=== PATIENT | female | born 1975 | race Caucasian/White ===

== ENCOUNTER → 2019-12-20 | Outpatient (CLI) | payer OTHER ==
--- NOTE | 2019-12-20 14:14 | KCIC ---
Three-view study left foot Clinical indications: Lateral left foot pain and contusion. Rolled left foot 2 days ago. FINDINGS: No acute fracture or dislocation or lytic process is seen. Moderate-sized plantar spur of the calcaneus is seen. No periosteal reaction is seen. Calcified phleboliths of the left ankle are seen. IMPRESSION: No acute fracture. Electronically signed by: Stanislav Gracia MD (12/20/2019 2:11 PM) [facility] [place]
== END | disposition home or self-care (01) ==
LOC: KCIC 12:29
PROVIDERS: ATTEND Nurse Practitioner Family
DX: S90.32XA Contusion of left foot, initial encounter (principal); M77.32 Calcaneal spur, left foot; I87.8 Other specified disorders of veins; X58.XXXA Exposure to other specified factors, initial encounter; Y93.89 Activity, other specified; Y92.89 Other specified places as the place of occurrence of the external cause; Y99.8 Other external cause status
CPT/HCPCS: 73630

== ENCOUNTER → 2020-08-09 | Outpatient (CLI) | payer OTHER ==
[2020-08-09 08:21] LABS: HEMATOCRIT 46.6 % (36.0-47.0); RED CELL DISTRIBUTION WIDTH 12.2 % (11.5-14.5); WHITE BLOOD COUNT 11.2 x10^3/uL (4.0-11.0)
[2020-08-09 08:47] LABS: ALBUMIN 3.6 g/dL (3.4-5.0); CREATININE 0.7 mg/dL (0.6-1.0); GFR 90.1; POTASSIUM 4.1 mmol/L (3.5-5.1); TOTAL BILIRUBIN 0.4 mg/dL (0.2-1.0); TOTAL PROTEIN 7.2 g/dL (6.4-8.2)
[2020-08-09 08:50] LABS: CHOLESTEROL/HDL RATIO 6.9; FREE T4 1.07 ng/dL (0.76-1.46); THYROID STIM HORMONE (TSH) 1.439 uIU/mL (0.358-3.74)
[2020-08-10 01:08] LABS: HEMOGLOBIN A1C 8.3 % (4.8-5.6)
== END ==
LOC: LAB 07:48
PROVIDERS: ATTEND Nurse Practitioner Family
DX: R53.83 Other fatigue (principal)
CPT/HCPCS: 36415; 80053; 80061; 82306; 82607; 82746; 83036; 83540; 83550; 84439; 84443; 85027

== ENCOUNTER → 2020-09-08 | Day surgery (SDC) | payer OTHER ==
[~2020-09-08] MED LIST: BUPR150T15 PO; LEVO5TAB29 PO; LIDOCAINE 1%/EPI 1:100,000 20 ML VIAL. INJ ONE; METF100010 PO; NAPR220T70 PO
--- NOTE | 2020-09-08 13:13 | PDOC4 ---
Operative Note Operative Note Date: 1210 at 1300 Preoperative diagnosis: Left facial sebaceous cyst Postoperative diagnosis: Same Procedure: Excision of sebaceous cyst Surgeon: Mejia Specimen: Facial mass Dictation: Patient is a 45-year-old female with an enlarging mass on her left face along the jawline patient only is tender procedure of excision was explained to the patient detail was benefits were also discussed occluding bleeding infection alternatives this procedure also discussed with patient who seemed to understand and gave both verbal and written consent to have the procedure performed. Patient was taken to the minors room placed in the supine positioning the area on the mass on her face was prepped and draped usual sterile fashion using ChloraPrep. An area around the mass was injected with 1% lidocaine with epinephrine once this was an anesthetized an elliptical incision over the mass was made with a 15 blade scalpel the skin was excised underneath the skin was a sebaceous cyst this was removed sharply and sent for pathology the wound was then closed in a single layer 4-0 subcuticular Monocryl Mastisol Steri-Strips and island dressings were applied. Patient tolerated procedure well was discharged home in stable condition all sponge instrument needle counts listed as correct estimated blood loss less than 5 mL MARY REGAN MD Sep 08, 2020 13:13
--- NOTE | 2020-09-08 13:14 | DISCH ---
DISCHARGE INSTRUCTIONS Condition on Discharge Condition on Discharge: Stable Activity After Discharge Activity Instructions for Disc: No restrictions Diet after Discharge Diet after Discharge: Regular Wound Incision Care Other wound/incision instructi: May shower in 24 hours Contacting the after DC Call your doctor for: If your condition worsens Follow-Up Follow up with: Dr. Regan in 2 weeks MARY REGAN MD Sep 08, 2020 13:14
--- NOTE | 2020-09-12 09:19 | PATHOLOGY ---
[facility] Accession Number: [id number] . 01 Material submitted: . jaw - LEFT JAW CYST. Modifiers: left . 02 Diagnosis: Skin, left jaw lesion excision: - Epidermal inclusion cyst. - Intradermal melanocytic nevus of skin overlying cyst. (JP:assistant case manager; 09/11/2020) R 09/11/2020 1650 Local . 02 Comment: There is no evidence of malignancy. (JPM:assistant case manager; 09/11/2020) . 02 Electronically signed: . Alex Whittaker MD, Pathologist NPI- [id number] . 01 Gross description: . Received in formalin labeled "Lori Bowers, left jaw cyst" is a previously opened go-white cystic structure measuring 0.8 x 0.7 x 0.6 cm, which contains go-white friable material. Also present in the container is a 1.2 x 0.8 x 0.3 cm ellipse of go-brown skin. The specimen is sectioned and submitted entirely in cassette A1. [place] [place] [facility] 09/09/2020 1022 Local . 02 Pathologist provided ICD-10: L72.0 . 02 CPT . 521308 Specimen Comment: A courtesy copy of this report has been sent to [phone], [phone] Specimen Comment: [id number] Specimen Comment: Report sent to / DR BARTHOLOMEW Performed at: 01 [facility] [address] [facility] [address], [place] [id number] MD Juan Manuel Maki MD Phone: [phone] Performed at: 02 [facility] [address] [place], [place] [id number] MD Alex Whittaker MD Phone: [phone]
== END | disposition home or self-care (01) ==
LOC: SURG 09:56
PROVIDERS: ATTEND Surgery
DX: L72.3 Sebaceous cyst (principal); L72.0 Epidermal cyst; Z20.828 Contact with and (suspected) exposure to other viral communicable diseases; E11.9 Type 2 diabetes mellitus without complications; F41.9 Anxiety disorder, unspecified; F17.210 Nicotine dependence, cigarettes, uncomplicated; I87.8 Other specified disorders of veins; Z79.84 Long term (current) use of oral hypoglycemic drugs; Z91.040 Latex allergy status; Z88.8 Allergy status to other drugs, medicaments and biological substances; Z90.49 Acquired absence of other specified parts of digestive tract; Z98.890 Other specified postprocedural states; Z79.899 Other long term (current) drug therapy
CPT/HCPCS: 11441; 87426; 88304; C9803; J3490; U0003

== ENCOUNTER 2021-02-25 14:31 | Emergency (ER) | payer OTHER ==
[~2021-02-25] VITALS: Ht 170.2 cm; Wt 85.0 kg
[~2021-02-25 14:31] MED LIST changes: -LIDOCAINE 1%/EPI 1:100,000 20 ML VIAL. INJ ONE
[2021-02-25 16:35] VITALS: BP 160/96
[2021-02-25] MEDS ORDERED: MORPHINE SULFATE 4 MG/ML VIAL. IV ONE (17:15)
[2021-02-25] MEDS ORDERED: IV NORMAL SALINE 1000ML BAG 1,000 ML IV ONE (17:15)
[2021-02-25] MEDS ORDERED: ONDANSETRON PF 4 MG/2 ML VIAL. IV ONE (17:15)
--- NOTE | 2021-02-25 20:25 | ED.ADGEN ---
Past Medical History Past Medical History: Asthma, Diabetes-Type II Past Surgical History: Appendectomy Smoking Status: Never Smoker Alcohol Use: None General Adult EDM: Chief Complaint: SKIN RASH/ABSCESS HPI: HPI: Patient is a 45 year old female who presents emergency department, accompanied by her mother, with complaints of a abscess to her low back. Patient states that the abscess began about 10 days ago and it started oozing bloody pus 3 days ago. Patient reports history of type 2 diabetes. She states she has had problems with these type of cyst before. Patient denies any fever, cough, shortness of breath, chills, body aches, fatigue, nausea, vomiting, diarrhea, abdominal pain, numbness, tingling, or weakness. She currently rates the pain at 8 out of 10 on the pain scale, the pain increases if the area is touched. Review of Systems: Review of Systems: Complete ROS is negative unless otherwise noted in HPI. Current Medications: Current Medications Medications (Trade) Dose Ordered Sig/Brandon Start Time Stop Time Status Last Admin Dose Admin Morphine Sulfate (Morphine Sulfate) 4 mg 1X ONCE 02/25/21 17:15 02/25/21 17:16 DC Ondansetron HCl (Zofran) 4 mg 1X ONCE 02/25/21 17:15 02/25/21 17:16 DC Sodium Chloride 1,000 ml @ 1,000 mls/hr 1X ONCE 02/25/21 17:15 02/25/21 18:14 DC Allergies: Allergies: Allergies Coded Allergies Type Severity Reaction Last Updated Verified cefdinir Allergy Mild "bad diarrhea" 09/08/20 Yes latex Allergy Mild redness 09/08/20 Yes Physical Exam: PE: See Above Constitutional: Well developed, well nourished, no acute distress, non-toxic appearance. [] HENT: Normocephalic, atraumatic, bilateral external ears normal, nose normal. [] Eyes: PERRLA, EOMI, conjunctiva normal, no discharge. [] Neck: Normal range of motion, no stridor. [] Cardiovascular:Heart rate regular rhythm Lungs & Thorax: Respirations even and unlabored, no retractions, no respiratory distress Skin: Warm, dry; 8 cm diameter erythemic, warm, fluctuant area of the patient's lower back over the lumbar spine, there is a small open area that is oozing pus near the inferior edge of the infection; the center of the wound is yellow in color. Extremities: No cyanosis, ROM intact, no edema. [] Neurologic: Alert and oriented X 3, normal motor, normal sensory, no focal deficits noted. [] Psychologic: Affect normal, judgement normal, mood normal. [] Current Patient Data: Vital Signs: Vital Signs Date Time Temp Pulse Resp B/P (MAP) Pulse Ox O2 Delivery O2 Flow Rate FiO2 02/25/21 16:35 97.9 114 18 160/96 (117) 97 Room Air 97.9 EKG: EKG: [] Heart Score: C/O Chest Pain: No Risk Scores: Score 0 - 3: 2.5% MACE over next 6 weeks - Discharge Home Score 4 - 6: 20.3% MACE over next 6 weeks - Admit for Clinical Observation Score 7 - 10: 72.7% MACE over next 6 weeks - Early Invasive Strategies Radiology/Procedures: Radiology/Procedures: [] Course & Med Decision Making: Course & Med Decision Making Pertinent Labs and Imaging studies reviewed. (See chart for details) Patient is a 45-year-old female who presents emergency department with reports of an abscess to her low back. Patient requested I&D of the abscess. I informed the patient that the infection is right over her spine and I do not feel comfortable draining an abscess that is over the spine without CT first to make sure there is not an underlying osseous infection. I ordered labs, imaging, and medications. The patient became frustrated while waiting for the orders to be carried out, she reported being unhappy with the amount of time she had spent in the waiting room. Patient informed her nurse Jany that she was no longer going to stay for treatment and left [place]. I was unable to speak with the patient prior to leaving [place]. [] Dragon Disclaimer: Dragtrisha Disclaimer: This electronic medical record was generated, in whole or in part, using a voice recognition dictation system. Departure Departure Impression: Primary Impression: Left against medical advice Disposition: LEFT AGAINST MEDICAL ADVICE Condition: STABLE MEAGAN [employer]Z [employer] February 25, 2021 20:25
[2021-02-27] MEDS ORDERED: CETI10TA74 PO (12:57)
[2021-02-27] MEDS ORDERED: ETON68IM3 SQ (12:58)
[2021-02-27] MEDS ORDERED: METF10007 PO (12:58)
[2021-02-27] MEDS ORDERED: IBUP-1007 PO (12:59)
[2021-02-27] MEDS ORDERED: MULT-245 PO (13:00)
[2021-02-27] MEDS ORDERED: ACET325T9 PO (13:00)
== END 2021-02-25 17:58 | disposition left against medical advice (07) ==
LOC: ER 14:31
DX: L02.212 Cutaneous abscess of back [any part, except buttock and flank] (principal); E11.9 Type 2 diabetes mellitus without complications; J45.909 Unspecified asthma, uncomplicated; Z90.89 Acquired absence of other organs; Z91.040 Latex allergy status; Z88.1 Allergy status to other antibiotic agents
CPT/HCPCS: 99281; 99283

== ENCOUNTER 2021-02-28 09:26 | Observation (INO) | payer OTHER ==
[~2021-02-28] VITALS: Ht 170.8 cm; Wt 86.8 kg
[2021-02-28] VITALS (9 sets, daily range): BP systolic 110–144; BP diastolic 59–94
[~2021-02-28 09:26] MED LIST changes: +ACET325T9 PO; +CETI10TA74 PO; +DEXAMETHASONE SOD PHOS 4 MG/ML VIAL ONE; +ETON68IM3 SQ; +HYDROmorphone 2 MG/ML VIAL IVP PRN; +IBUP-1007 PO; +IV RINGERS,LACTATED 1000ML 1,000 ML IV SCH; +LIDOCAINE 2% PF 5 ML VIAL. ONE; +METF10007 PO; +MORPHINE SULFATE 2 MG/ML VIAL. IVP PRN; +MULT-245 PO; +ONDANSETRON PF 4 MG/2 ML VIAL. ONE; +PROCHLORPERAZINE 10 MG/2 ML VIAL. IVP PRN; +PROPOFOL 10 MG/ML (20ML) VIAL. IV ONE; +ROCURONIUM 50 MG/5 ML VIAL. ONE; +SUCCINYLCHOLINE 200 MG/10 ML VIAL. ONE; +fentaNYL PF VIAL 100 MCG/2 ML VIAL IVP PRN; +fentaNYL PF VIAL 100 MCG/2 ML VIAL ONE
[2021-02-28] MEDS: INSULIN LISPRO 100 UNIT/ML 3ML VIAL for OP,RR ONLY. SQ PRN ×2 (10:15→12:02)
[2021-02-28] MEDS ORDERED: LIDOCAINE 1%/EPI 1:100,000 20 ML VIAL. ONE (10:40)
--- NOTE | 2021-02-28 11:57 | PDOC4 ---
Operative Note Operative Note Operative Note: Preoperative Diagnosis: Back abscess Postoperative Diagnosis: Same Procedure: Incision and drainage of back abscess Surgeon: Mehul Anesthesia: General EBL: 10 mL Specimen: Cultures microbiology Drains: None Complications: None Indication: The patient is a 45-year-old female with diabetes who presented with a back abscess. She will require operative drainage. The risks of surgery were discussed which include bleeding, infection, recurrence, pain, wound healing problems, scar tissue, potential need for additional surgery procedure. She understands and would like to proceed Description: The patient was taken the operating room and placed supine on the operating table. General anesthesia was performed. She was then laid on her side exposing the right mid back. The skin was prepped with Betadine draped in a standard surgical manner. An elliptical incision was made in the fluctuant area with excision of some of the devitalized skin. There is immediate return of a large amount of purulent fluid. Cultures were obtained and sent to [facility]. There was some infected sebaceous material that was also removed. With finger dissection any loculations were freed up. The entire abscess cavity was then irrigated with sterile saline which was suctioned. The cavity was then packed with sterile gauze and a dressing was applied. The patient tolerated the procedure well and was sent to the recovery room in stable condition. At the end of the case all counts were correct. MARY ELLEN OLVERA MD Feb 28, 2021 11:57
[2021-02-28] MEDS ORDERED: HYDROmorphone 2 MG/ML VIAL IV PRN (12:00)
[2021-02-28] MEDS ORDERED: NALOXONE 0.4 MG/ML VIAL. IV PRN (12:00)
[2021-02-28] MEDS ORDERED: ONDANSETRON PF 4 MG/2 ML VIAL. IVP PRN (12:00)
[2021-02-28] MEDS ORDERED: oxyCODONE/APAP 5/325 1 TAB TABLET PO PRN (12:00)
[2021-02-28] MEDS ORDERED: ETONOGESTREL 68 MG SQ SCH (12:00)
[2021-02-28] MEDS ORDERED: 0.9 % SODIUM CHLORIDE 10 ML DISP.SYRIN. IV PRN (12:00)
[2021-02-28] MEDS ORDERED: IV NORMAL SALINE 1000ML BAG 1,000 ML IV SCH (12:00)
[2021-02-28] MEDS ORDERED: fentaNYL PF VIAL 100 MCG/2 ML VIAL ONE (12:07)
[2021-02-28] MEDS: fentaNYL PF VIAL 100 MCG/2 ML VIAL IVP PRN ×2 (12:10→12:18)
[2021-02-28] MEDS ORDERED: INSULIN LISPRO 100 UNIT/ML 3ML VIAL for OP,RR ONLY. SQ ONE ×2 (12:10)
[2021-02-28] MEDS ORDERED: IBUPROFEN 200 MG TABLET. PO PRN (12:15)
[2021-02-28] MEDS ORDERED: MORPHINE SULFATE 2 MG/ML VIAL. ONE (12:42)
[2021-02-28] MEDS: buPROPion XL 150 MG TAB.ER.24H. PO SCH (13:00)
[2021-02-28] MEDS: IV 1/2 NORMAL SALINE 1,000 ML IV SCH ×2 (14:18→14:31)
[2021-02-28] MEDS: AMOXICILLIN/K CLAV 875/125MG TABLET. PO SCH ×2 (14:18→20:39)
[2021-02-28] MEDS: CETIRIZINE HCL 10 MG TABLET. PO SCH (14:19)
[2021-02-28] MEDS ORDERED: DEXTROSE 50% 25 GM / 50ML DISP.SYRIN. IV PRN (15:45)
[2021-02-28] MEDS: oxyCODONE/APAP 5/325 1 TAB TABLET PO PRN ×2 (16:05→20:40)
[2021-02-28] MEDS: INSULIN LISPRO 300 UNITS/3 ML VIAL. SQ SCH ×2 (17:42→20:49)
[2021-03-01 03:00] VITALS: BP 120/66
[2021-03-01] MEDS: oxyCODONE/APAP 5/325 1 TAB TABLET PO PRN ×2 (06:22→14:51)
[2021-03-01 07:00] VITALS: BP 122/65
[2021-03-01] MEDS: INSULIN LISPRO 300 UNITS/3 ML VIAL. SQ SCH ×3 (07:30→16:30)
[2021-03-01] MEDS ORDERED: metFORMIN 500 MG TABLET PO SCH (08:00)
[2021-03-01] MEDS ORDERED: MULTIVITAMIN with MINERAL TABLET. PO SCH (09:00)
[2021-03-01] MEDS: buPROPion XL 150 MG TAB.ER.24H. PO SCH (09:24)
[2021-03-01] MEDS: CETIRIZINE HCL 10 MG TABLET. PO SCH (09:24)
[2021-03-01] MEDS: AMOXICILLIN/K CLAV 875/125MG TABLET. PO SCH (09:25)
[2021-03-01 11:00] VITALS: BP 126/67
[2021-03-01] MEDS ORDERED: OXYC1TAB15 PO (11:10)
[2021-03-01] MEDS ORDERED: AMOX1TAB11 PO (11:10)
--- NOTE | 2021-03-01 11:16 | DISCH ---
DISCHARGE INSTRUCTIONS Condition on Discharge Condition on Discharge: Stable Activity After Discharge Activity Instructions for Disc: No restrictions Bathing Instructions: Shower-keep dressing dry Diet after Discharge Diet after Discharge: Regular Wound Incision Care Wound/Incision Care: Change dressing Contacting the after DC Call your doctor for: If your condition worsens Follow-Up Follow up with: Dr Carver 1 -2 weeks, call to schedule KIMBERLEE MOLINA APRN Mar 01, 2021 11:16
--- NOTE | 2021-03-01 11:20 | PDOC ---
KIMBERLEE MOLINA MEDICAL IMAGING DIRECTOR 03/01/21 1120: SURGICAL PROGRESS NOTE DATE: 03/01/21 TIME: 11:17 Subjective doing well tolerating diet still has abx from Friday Vital Signs Vital Signs Date Time Temp Pulse Resp B/P (MAP) Pulse Ox O2 Delivery O2 Flow Rate FiO2 03/01/21 07:05 97 Room Air 8.0 03/01/21 07:00 98.5 79 18 122/65 (84) 98.5 I&O Intake and Output 03/01/21 07:00 Intake Total 700 ml Output Total 10 ml Balance 690 ml IV Total 700 ml Output Estimated Blood Loss 10 ml # Voids 6 General: Alert, Oriented X3, Cooperative Skin: Other (wound with packing in place) Labs Laboratory Tests Test 02/28/21 09:06 02/28/21 09:54 02/28/21 10:45 02/28/21 11:58 Bedside Urine HCG, Qualitative Hcg negative (Negative) Glucose (Fingerstick) 237 mg/dL (70-99) 209 mg/dL (70-99) 185 mg/dL (70-99) Test 02/28/21 17:13 02/28/21 19:56 03/01/21 07:35 Glucose (Fingerstick) 267 mg/dL (70-99) 271 mg/dL (70-99) 150 mg/dL (70-99) Laboratory Tests Test 02/28/21 11:58 02/28/21 17:13 02/28/21 19:56 03/01/21 07:35 Glucose (Fingerstick) 185 mg/dL (70-99) 267 mg/dL (70-99) 271 mg/dL (70-99) 150 mg/dL (70-99) Assessment/Plan s/p I&D will set up wound care FU in clinic finish augmentin at home Justicifation of Admission Dx: Justifications for Admission: Justification of Admission Dx: Yes Comments: abscess MARY ELLEN OLVERA MD 03/01/21 4365: SURGICAL PROGRESS NOTE Assessment/Plan Agree with above KIMBERLEE MOLINA APRN Mar 01, 2021 11:20 MARY ELLEN OLVERA MD Mar 01, 2021 14:46
[2021-03-01 15:00] VITALS: BP 115/70
== END 2021-03-01 18:10 | disposition home or self-care (01) ==
LOC: SURG 09:26 → 4 NORTH 11:50
PROVIDERS: ADMIT Surgery; ATTEND Surgery
DX: L02.212 Cutaneous abscess of back [any part, except buttock and flank] (principal); E11.9 Type 2 diabetes mellitus without complications
CPT/HCPCS: 10061; 81025; 82962; 87071; 87075; 96361; 96372; 96374; A4930; A6253; A6402; G0378; G0379; J0330; J1100; J1815; J1956; J2270; J2405; J2704; J3010; J3490; 87076

== ENCOUNTER → 2021-06-21 | Outpatient (CLI) | payer OTHER ==
[~2021-06-21] MED LIST changes: +AMOX1TAB11 PO; -DEXAMETHASONE SOD PHOS 4 MG/ML VIAL ONE; -HYDROmorphone 2 MG/ML VIAL IVP PRN; -IV RINGERS,LACTATED 1000ML 1,000 ML IV SCH; -LIDOCAINE 2% PF 5 ML VIAL. ONE; -MORPHINE SULFATE 2 MG/ML VIAL. IVP PRN; -ONDANSETRON PF 4 MG/2 ML VIAL. ONE; +OXYC1TAB15 PO; -PROCHLORPERAZINE 10 MG/2 ML VIAL. IVP PRN; -PROPOFOL 10 MG/ML (20ML) VIAL. IV ONE; -ROCURONIUM 50 MG/5 ML VIAL. ONE; -SUCCINYLCHOLINE 200 MG/10 ML VIAL. ONE; -fentaNYL PF VIAL 100 MCG/2 ML VIAL IVP PRN; -fentaNYL PF VIAL 100 MCG/2 ML VIAL ONE
[2021-06-22 01:10] LABS: HEMOGLOBIN A1C 7.1 % (4.8-5.6)
== END ==
LOC: LAB 08:17
PROVIDERS: ATTEND Nurse Practitioner Family
DX: E11.65 Type 2 diabetes mellitus with hyperglycemia (principal)
CPT/HCPCS: 36415; 83036

== ENCOUNTER → 2021-10-12 | Outpatient (CLI) | payer OTHER ==
[2021-10-12 09:59] LABS: BASO # 0.1 x10^3/uL (0.0-0.2); BASO % 1 % (0-3); EOS # 0.1 x10^3/uL (0.0-0.7); EOS % 1 % (0-3); HEMATOCRIT 51.9 % (36.0-47.0); HEMOGLOBIN 17.4 g/dL (12.0-15.5); LYMPH # 2.1 x10^3/uL (1.0-4.8); LYMPH % 21 % (24-48); MEAN CORPUSCULAR HEMOGLOBIN 31 pg (25-35); MEAN CORPUSCULAR HGB CONC 34 g/dL (31-37); MEAN CORPUSCULAR VOLUME 94 fL (79-100); MONO # 0.6 x10^3/uL (0.0-1.1); MONO % 6 % (0-9); NEUT # 7.3 x10^3/uL (1.8-7.7); NEUT % 72 % (31-73); PLATELET COUNT 245 x10^3/uL (140-400); RED BLOOD COUNT 5.55 x10^6/uL (3.50-5.40); RED CELL DISTRIBUTION WIDTH 12.5 % (11.5-14.5); WHITE BLOOD COUNT 10.2 x10^3/uL (4.0-11.0)
[2021-10-12 10:13] LABS: ALBUMIN 3.4 g/dL (3.4-5.0); ALBUMIN/GLOBULIN RATIO 0.9 (1.0-1.7); CALCIUM 8.9 mg/dL (8.5-10.1); CREATININE 0.6 mg/dL (0.6-1.0); GFR 106.7; POTASSIUM 4.1 mmol/L (3.5-5.1); TOTAL BILIRUBIN 0.4 mg/dL (0.2-1.0); TOTAL PROTEIN 7.4 g/dL (6.4-8.2)
[2021-10-12 10:20] LABS: FREE T4 0.98 ng/dL (0.76-1.46); THYROID STIM HORMONE (TSH) 0.935 uIU/mL (0.358-3.74)
[2021-10-12 22:09] LABS: CREAT RD UR 9.9 mg/dL (Not Estab.); MICROALB RD UR <3.0 ug/mL (Not Estab.)
[2021-10-13 00:09] LABS: HEMOGLOBIN A1C 7.3 % (4.8-5.6)
== END ==
LOC: LAB 09:12
PROVIDERS: ATTEND Nurse Practitioner Family
DX: E11.65 Type 2 diabetes mellitus with hyperglycemia (principal)
CPT/HCPCS: 80053; 80061; 82043; 82306; 82570; 83036; 84439; 84443; 85025